=== PATIENT | female | born 1955 | race Hispanic/Latino ===

== ENCOUNTER 2023-03-03 19:09 | Emergency (ER) | payer BC, OTHER ==
[~2023-03-03] VITALS: Ht 149.9 cm; Wt 69.4 kg
[2023-03-03 21:24] LABS: HEMATOCRIT 41.6 % (36-48); MEAN CORPUSCULAR HEMOGLOBIN 27.5 pg (27.0-33.0); MEAN CORPUSCULAR HGB CONC 32.2 g/dL (32.0-36.0); MEAN CORPUSCULAR VOLUME 85.2 fL (79-99); PLATELET COUNT (AUTO) 248 K/uL (130-400); RED BLOOD CELL COUNT(AUTO) 4.88 MIL/uL (4.00-5.50); RED CELL DISTRIBUTION WIDTH 13.1 % (11.0-15.5); WHITE BLOOD COUNT (AUTO) 8.6 K/uL (4.8-10.8)
[2023-03-03 21:31] LABS: CREATININE 0.8 mg/dL (0.5-1.5); POTASSIUM 3.9 mmol/L (3.5-5.1)
[2023-03-03 21:45] LABS: MAGNESIUM 2.1 mg/dL (1.80-2.40); THYROID STIMULATING HORMONE 1.12 uIU/mL (0.36-3.74)
[2023-03-03 21:59] LABS: BASOPHILS % (AUTO) 0.6 % (0.0-5.0); EOSINOPHILS % (AUTO) 4.1 % (0.0-8.0); LYMPHOCYTES % (AUTO) 38.7 % (21.0-51.0); MONOCYTES % (AUTO) 6.9 % (3.0-13.0); NEUTROPHILS % (AUTO) 49.6 % (40.0-77.0)
[2023-03-03] MEDS ORDERED: MELO-106 PO (22:25)
[2023-03-03] MEDS ORDERED: FAMOTIDINE 20MG VIAL IV ONE (22:30)
[2023-03-03] MEDS ORDERED: KETOROLAC 30MG VIAL (30MG/ML) IVP ONE (22:30)
[2023-03-03] MEDS ORDERED: DIAZEPAM 5 MG/ML 2 ML SYG IVP ONE (22:30)
[2023-03-03] MEDS ORDERED: METOCLOPRAMIDE 10 MG/2 ML VIAL IVP ONE (22:30)
[2023-03-03 23:03] VITALS: BP 154/78
== END 2023-03-03 23:12 | disposition home or self-care (01) ==
LOC: EDH 19:09
DX: M54.12 Radiculopathy, cervical region (principal); I16.0 Hypertensive urgency; I10 Essential (primary) hypertension; F17.200 Nicotine dependence, unspecified, uncomplicated; E78.00 Pure hypercholesterolemia, unspecified
CPT/HCPCS: 99284; 96374; 96375; 71045; 84443; 83735; 84484; 80048; 85025; 36415; 93005; J3490; J3360; J1885; J2765